=== PATIENT | female | born 1985 | race Two or more races ===

== ENCOUNTER 2016-11-29 19:34 | Inpatient (IN) | payer OTHER ==
--- NOTE | 2016-11-29 19:57 | OBADHP ---
Datetime: 11/29/2016 19:50 Admit Comment, IP Provider: at 39weeks came with ctxs started at 3 am with vaginal bleeding and discharge,+fm obhx 1 x c/s pmh denies med pnv all nkda psh denies soch denies sse vaginal blood ve /-2 a/p at 39weeks previous c/s req plan admit to l_d npo/ivf labs pen g cont yohan and efm anticipate dr matthews aware Pelvic Type - PN: Adequate Extremities - PN: Normal Abdomen - PN: Normal Back - PN: Normal Breast - PN: Normal Lungs - PN: Normal Heart - PN: Normal Thyroid - PN: Normal Neurologic - PN: Normal HEENT - PN: Normal General - PN: Normal FHR - Baseline A Provider: 130 Contraction Comments Provider: irrg Comments, ACOG Physical Exam: gravid,non tender_ sse vaginal blood IP Hx Assessment: The History has been Reviewed and is Current Vital Signs Provider: Reviewed; Within Normal Limits IP Chief Complaint: Uterine contractions; Vaginal bleeding NICHD Variability Prov Fetus A: Moderate 6-25bpm NICHD Accel Fetus A IP Provider: 15X15 FHR Category Provider Fetus A: Category I NICHD Decel Fetus A IP Provider: None Dilatation, Provider: 3 Effacement, Provider: 80 Station, Provider: -2 Genitourinary Exam: Normal DTRs - PN: Normal EGA AdmitDate IP: 39.0 IP Adm Impression: Term, intrauterine IP Admit Plan: Admit to unit; Initiate protocol
[2016-11-29 19:58] VITALS: BMI 22.4
[2016-11-29] MEDS ORDERED: Penicillin G Potassium 5 MU in Dextrose 5% In Water 50 ML IV ONE (20:00)
[2016-11-29] MEDS ORDERED: Lactated Ringer's 1,000 ML IV SCH (20:00)
[2016-11-29] MEDS ORDERED: Penicillin G 5 Million Unit Vial IVPB ONE (20:23)
[2016-11-29 20:55] LABS: EOS # 0.1 K/uL (0.0-0.7); EOS % 1.1 % (0.0-4.0); HEMATOCRIT 38.6 % (34.0-47.0); LYMPH # 2.9 K/uL (1.0-4.3); LYMPH % 22.6 % (20.0-40.0); MEAN CORPUSCULAR HEMOGLOBIN 29.2 pg (27.0-31.0); MEAN CORPUSCULAR HGB CONC 33.5 g/dL (33.0-37.0); MEAN PLATELET VOLUME 9.8 fL (7.2-11.7); MONO % 8.3 % (0.0-10.0); WHITE BLOOD COUNT 12.6 K/uL (4.8-10.8)
[2016-11-29 21:02] LABS: RBC URINE 1 /hpf (0-3); URINE BACTERIA RARE (<OCC); URINE BILIRUBIN NEGATIVE (NEGATIVE); URINE BLOOD TRACE (NEGATIVE); URINE COLOR Straw (YELLOW); URINE GLUCOSE (UA) NORMAL (Normal); URINE KETONE NEGATIVE (NEGATIVE); URINE LEUKOCYTE ESTERASE NEG Leu/uL (Negative); URINE PROTEIN NEGATIVE (NEGATIVE); URINE UROBILINOGEN NORMAL mg/dL (0.2-1.0); WBC URINE < 1 /hpf (0-5)
[2016-11-29 21:05] LABS: CHLORIDE 99 mmol/L (98-107); POTASSIUM 3.6 mmol/L (3.6-5.2); SODIUM 135 mmol/L (132-148)
[2016-11-29 21:07] LABS: GFR AFRICAN-AMERICAN > 60
[2016-11-29 21:08] LABS: ALKALINE PHOSPHATASE 180 U/L (38-126); ALT/SGPT 15 U/L (9-52); AST/SGOT 18 U/L (14-36); BILIRUBIN,TOTAL 0.3 mg/dL (0.2-1.3); BLOOD UREA NITROGEN 5 mg/dL (7-17); CARBON DIOXIDE 23 mmol/L (22-30); GLUCOSE,RANDOM 78 mg/dL (65-105); TOTAL PROTEIN 6.6 g/dL (6.3-8.3)
[2016-11-29 21:09] LABS: CALCIUM 8.4 mg/dl (8.6-10.4)
[2016-11-30] MEDS: Penicillin G Potassium 2.5 MU in Dextrose 5% In Water 50 ML IVPB SCH ×4 (00:28→12:35)
--- NOTE | 2016-11-30 06:56 | OBPN ---
Datetime: 11/30/2016 06:55 IP Progress Impression: Normal progression of labor IP Procedures: Artificial ROM; Sterile Vag Exam IP Progress Plan: Continue present management Contraction Comments Provider: irrg FHR - Baseline A Provider: 130 IP Progress Note Comment: pt bws examined at bed side ve 4-5/80/-1 arom clear anticipate Vital Signs Provider: Reviewed NICHD Accel Fetus A IP Provider: 15X15 FHR Category Provider Fetus A: Category I NICHD Variability Prov Fetus A: Moderate 6-25bpm Dilatation, Provider: 4-5 Effacement, Provider: 80 Station, Provider: -1 Datetime: 11/29/2016 19:50 NICHD Decel Fetus A IP Provider: None
[2016-11-30] MEDS ORDERED: Bupivacaine 0.125%/FentaNYL 200 ML EPI ONE (07:08)
[2016-11-30] MEDS ORDERED: Lidocaine 2% MPF (5 ml) Inj ONE (08:06)
[2016-11-30] MEDS ORDERED: Sodium Bicarbonate (8.4%) 50 Meq Syringe ONE (08:08)
[2016-11-30] MEDS ORDERED: Oxytocin 30 UNIT 500 ML IV PRN (12:53)
[2016-11-30] MEDS ORDERED: Oxytocin 30 UNIT 500 ML IV ONE (13:04)
[2016-11-30] MEDS ORDERED: Lidocaine 2% Inj (20ml) ONE (14:41)
--- NOTE | 2016-11-30 15:44 | OBPN ---
Datetime: 11/30/2016 15:24 IP Progress Impression: Normal progression of labor; Reassuring heart rate IP Progress Plan: Continue present management; Anticipate Vaginal Delivery Membranes, Provider: Ruptured Amniotic Fluid Color, Provider: Clear Contraction Comments Provider: q 2-3 min FHR - Baseline A Provider: 150 Gestation - Est Wks by US: 39.1 IP Progress Note Comment: Pt seen and examined, reports feeling pressure, pain from ctx, +LOF, +FM VSS VE: 10/100/+1 EM: Cat I TOCO: q 2-3 min PItocin q 1 mu/min A/P @ 39 wks previous cesearen section aarti in labor fully dilated -start pushing -anticipate NICHD Accel Fetus A IP Provider: 15X15 FHR Category Provider Fetus A: Category I Dilatation, Provider: 10 Effacement, Provider: 100 Station, Provider: 0 NICHD Decel Fetus A IP Provider: None
--- NOTE | 2016-11-30 17:16 | OBDS ---
DELIVERY PERSONNEL Delivery Doctor: Roman Irving MD Bottom Brusher: Criss Haynes RN Anesthesiologist: Diane Greenwood MD MATERNAL INFORMATION Delivery Anesthesia: Epidural Medications in Delivery: PITOCIN, HEMABATE 1630 Placenta Cultured: No Maternal Complications: Other Other Maternal Complications: RN Comments: BABY GIRL BORN VIA VBZC APGARS 9/9 BABY STABLE AND REMAINS WITH MOTHER. Provider Comments: pt was fully dilated, atramatic spontaneous delivery of head compoud presentation in [place] wiht left hand, nuchal cord x 1 reduced, followed by atraumatic, sponteneous deliveyr of ante rior folloewd by posteiror shoulwerd with body cord x 2 easily reduced. Both oral and nasal passages of baby were bulb suctioned, umbilcal cord was clamped and cut. Baby handed to RN over mothers abodme n with assistance. Cord blood collected and sent x 2. Spontaneous deliveyr of intact placenta with m emgranes. Bimanl uterine massage, boggy lower uterine segment. Hemabate IM x 1 given. bimanaul mass aage, uteruus firm. Fundus Firm. Right mediolateral epistiotomy repaired with 2-0 and 3-0 chormic C T after lidocaine admistered. Good hemostaiss, no complication live female apgars 9,9 pediatriican present ebl 400ml weight 6lbs 15 ounces LABOR SUMMARY EDC: 12/06/2016 00:00 No. Babies in Womb: 1 Attempted: Yes Labor Anesthesia: Epidural LABOR INFORMATION Reason for Induction: Not Applicable Onset of Labor: 11/30/2016 07:00 Complete Dilatation: 11/30/2016 15:00 Cervical Ripening Agents: Other Other Ripening Agents: NA Oxytocin: Augmentation Group B Beta Strep: Positive Antibiotics # of Doses: 3 Antibiotics Time of Last Dose: 1230 Steroids Given: None Reason Steroids Not Administered: Not Applicable MEMBRANES Membranes Rupture Method: Artificial Rupture of Membranes: 11/30/2016 06:40 Length of Rupture (hrs): 9.63 Amniotic Fluid Color: Clear Amniotic Fluid Amount: Moderate Amniotic Fluid Odor: Normal STAGES OF LABOR Stage 1 hrs: 8 Stage 1 min: 0 Stage 2 hrs: 1 Stage 2 min: 18 Stage 3 hrs: 0 Stage 3 min: 5 Total Time in Labor hrs: 9 Total Time in Labor min: 23 VAGINAL DELIVERY Episiotomy: Right Mediolateral Laceration Extension: N/A Laceration Type: None Laceration Repair: Yes Laceration Repair Note: right mediolateral episiotomy repaired with 2-0 and 3-[address] with l ocal anesthesia 1% lidocaine Initial Vag Sponge Count: 20 Final Vag Sponge Count: 20 Initial Vag Sharps Count: 3 Final Vag Sharps Count: 3 Sponge Count Correct: Yes Sharps Count Correct: Yes Count Comment: yes BABY A INFORMATION Delivery Date/Time: 11/30/2016 16:18 Method of Delivery: Vaginal Born in Route : No : Successful Forceps: N/A Vacuum Extraction: N/A Shoulder Dystocia : No SHOULDER DYSTOCIA BABY A Infant Delivery Date/Time: 11/30/2016 16:18 PRESENTATION/POSITION BABY A Presentation: Compound Cephalic Presentation: Vertex Vertex Position: Right Occipital Anterior Breech Presentation: N/A PLACENTA INFORMATION BABY A Placenta Delivery Time : 11/30/2016 16:23 Placenta Method of Delivery: Spontaneous Placenta Status: Delivered SCORES BABY A Heart Rate 1 min: >100 bpm Resp Effort 1 min: Good Cry Reflex Irritability 1 min: Cough or Sneeze or Pulls Away Muscle Tone 1 min: Active Motion Color 1 min: Body Webster, Extremities Blue Resuscitation Effort 1 min: N/A SCORE 1 MIN: 9 Heart Rate 5 min: >100 bpm Resp Effort 5 min: Good Cry Reflex Irritability 5 min: Cough or Sneeze or Pulls Away Muscle Tone 5 min: Active Motion Color 5 min: Body Webster, Extremities Blue Resuscitation Effort 5 min: N/A SCORE 5 MIN: 9 INFORMATION BABY A Gestational Age at Delivery: 39.1 Gestational Status: Term Infant Outcome : Liveborn Condition : Stable Sex: Female IDENTIFICATION/MEDS BABY A ID Band Number: [id number] ID Band Location: Left Leg; Left Arm Sensor Applied: Yes Sensor Number: [id number] Sensor Location : Cord Clamp Vitamin K Given : Not Given Erythromycin Given: Not Given WEIGHT/LENGTH BABY A Birthweight (gms): 3155 Weight (lb): 6 Weight (oz): 15 Infant Length Inches: 19.25 Infant Length cms: 48.9 CORD INFORMATION BABY A No. Cord Vessels: 3 Nuchal Cord : Around Neck x1, Loose Nuchal Cord Other: around the body x2 True Knot: 0 Cord Blood Taken: Yes Infant Suction: Mouth; Nose ASSESSMENT BABY A Complications: Other Infant Complications Other: Physical Findings at Delivery: Within Normal Limits Respirations: Appears Normal Transferred To: Remains with Mother
[2016-11-30] MEDS ORDERED: Oxycodone/Acetaminophen 5/325 mg Tab PO PRN ×2 (17:19)
[2016-11-30] MEDS ORDERED: Benzocaine/Menthol 20%-0.5% Topical Spray (60 ml) TOP PRN (17:19)
[2016-11-30] MEDS ORDERED: Oxytocin 30 UNIT 500 ML IV SCH (17:30)
[2016-11-30] MEDS ORDERED: Oxycodone/Acetaminophen 5/325 mg Tab ONE (17:48)
[2016-12-01 07:10] LABS: BASO % 0.2 % (0.0-2.0); EOS % 0.2 % (0.0-4.0); LYMPH # 2.8 K/uL (1.0-4.3); LYMPH % 17.7 % (20.0-40.0); MEAN CELL VOLUME 86.8 fL (81.0-99.0); MEAN CORPUSCULAR HEMOGLOBIN 29.8 pg (27.0-31.0); MEAN CORPUSCULAR HGB CONC 34.4 g/dL (33.0-37.0); MEAN PLATELET VOLUME 9.3 fL (7.2-11.7); MONO # 1.2 K/uL (0.0-0.8); MONO % 7.7 % (0.0-10.0); RED CELL DISTRIBUTION WIDTH 13.7 % (11.5-14.5); WHITE BLOOD COUNT 15.6 K/uL (4.8-10.8)
[2016-12-01] MEDS: Multiple Vitamins Tab PO SCH (09:12)
[2016-12-02 08:32] VITALS: BP 117/76; PULSE 88; RESP 18; TEMP 97.5; O2SAT 99
[2016-12-02] MEDS: Multiple Vitamins Tab PO SCH (09:09)
[2016-12-02] MEDS ORDERED: Influenza Virus Vaccine 45 mcg/0.5 ml Syr IM ONE (10:46)
== END 2016-12-02 14:00 | disposition home or self-care (01) | DRG 775 ==
LOC: C.EROB 19:34 → C.4D 19:50 → C.4M 11-30 20:28
PROVIDERS: ADMIT Obstetrics & Gynecology; ATTEND Obstetrics & Gynecology
PROC: 10E0XZZ Delivery of Products of Conception, External Approach (ICD-10-PCS; principal; 2016-11-30)
PROC: 0W8NXZZ Division of Female Perineum, External Approach (ICD-10-PCS; 2016-11-30)
PROC: 10907ZC Drainage of Amniotic Fluid, Therapeutic from Products of Conception, Via Natural or Artificial Opening (ICD-10-PCS; 2016-11-30)
DX: O34.211 Maternal care for low transverse scar from previous cesarean delivery (principal); O99.824 Streptococcus B carrier state complicating childbirth; O69.81X0 Labor and delivery complicated by cord around neck, without compression, not applicable or unspecified; O32.6XX0 Maternal care for compound presentation, not applicable or unspecified; Z3A.39 39 weeks gestation of pregnancy; Z37.0 Single live birth